=== PATIENT | female | born 1965 | race Caucasian/White ===

== ENCOUNTER → 2019-03-18 | Outpatient (CLI) | payer MEDICARE, MEDICAID ==
[2015-10-27 14:35] VITALS: BP 125/59
[~2019-03-18] MED LIST: [UNRECOGNIZED DRUG - REMARK]
--- NOTE | 2019-03-18 15:51 | KCIC ---
EXAM: Bilateral hips, 2 views. HISTORY: Pain. COMPARISON: None. FINDINGS: 2 views of both hips are obtained. There is no fracture, dislocation or subluxation. The femoral heads are normal in configuration. IMPRESSION: No acute osseous finding. Electronically signed by: Kristie Schwartz MD (03/18/2019 3:48 PM) [facility]
--- NOTE | 2019-03-18 16:32 | KCIC ---
EXAM: Dual energy x-ray absorptiometry (DEXA). HISTORY: Post menopausal screening. TECHNIQUE: Dual energy x-ray absorptiometry of the lumbar spine and the left hip was performed. T-score of average bone mineral density based was calculated based on standard deviations above or below the expected young adult normal value. Diagnostic definitions were established by the [employer] Organization. FINDINGS: The average bone mineral density associated with L1-L4 is 0.709 g/cm^2, corresponding with a T-score of -3.1. The average total bone mineral density associated with the left hip is 0.839 g/cm^2, corresponding with a T-score of -0.8. No comparison examinations are available. Refer to the worksheets for full detail. IMPRESSION: 1. Osteoporosis. Average bone mineral density yields a T-score of -2.5 or less. Fracture risk is high. Electronically signed by: Daquan Box MD (03/18/2019 4:29 PM) [facility]
--- NOTE | 2019-03-18 19:13 | KCIC ---
Bilateral digital screening mammograms with 3-D tomosynthesis: Reason for examination: Routine screening. Comparison is made to previous study dated 06/30/2011. Bilateral mammograms in CC and oblique projections were obtained with 2-D imaging and 3-D tomosynthesis imaging on a Siemens Inspiration unit and reviewed on the workstation. Interpretation was made with the benefit of CAD. The skin and nipples show no abnormalities. No abnormal axillary lymph nodes are seen. The breast parenchyma is extremely dense. (Breast density: Category D.) There appears to be new nodularity in the subareolar 3:00 position of the left breast. This may represent ductal ectasia however papilloma cannot be excluded. Further evaluation with ultrasound is recommended. There are no other new dominant masses, suspicious calcifications or architectural distortion evident. Benign calcifications are present. Impression: New nodularity in the retroareolar 3:00 position of the left breast. Recommend further evaluation with ultrasound. Your patient's mammogram demonstrates that she has dense breast tissue (breast density category C or D), which could hide abnormalities, and if she has other risk factors for breast cancer that have been identified, she might benefit from supplemental screening tests that may be suggested by you as her ordering physician. Dense breast tissue, in and of itself, is a relatively common condition. Therefore, this information is not provided to cause undue concern, but rather to raise your awareness and to promote discussion with your patient regarding the presence of other risk factors, in addition to dense breast tissue. Your patient's mammography results will be sent to her. BI-RAD Category 0: Incomplete. Needs additional imaging evaluation. "Our facility is accredited by the [employer] Mammography Program." This patient's information has been entered into a reminder system for the patient to be notified with the results of her examination and a target date for the next mammogram. Electronically signed by: Jenna Conti MD (03/18/2019 7:11 PM) [id number]
== END | disposition home or self-care (01) ==
LOC: MAMMO 14:20
PROVIDERS: ATTEND Family Medicine
DX: Z12.31 Encounter for screening mammogram for malignant neoplasm of breast (principal); N64.89 Other specified disorders of breast; M81.0 Age-related osteoporosis without current pathological fracture; M25.551 Pain in right hip; M25.552 Pain in left hip; Z78.0 Asymptomatic menopausal state
CPT/HCPCS: 73521; 77063; 77067; 77080

== ENCOUNTER → 2019-03-25 | Outpatient (CLI) | payer MEDICARE, MEDICAID ==
[2015-10-27 14:35] VITALS: BP 125/59
--- NOTE | 2019-03-25 13:46 | KCIC ---
EXAM: Left breast sonogram. HISTORY: 53-year-old female presents for evaluation of nodularity within the left breast demonstrated on a mammogram dated 03/18/2019. TECHNIQUE: Sonographic imaging of the left breast including all 4 quadrants and the retroareolar region was performed. COMPARISON: None. FINDINGS: There is a focally dilated duct within the 3:00 subareolar aspect of the right breast. No intraductal lesion is seen. There is a small adjacent simple cyst at the 2:30 position measuring 10 mm. No solid lesion is seen. IMPRESSION: 1. Small cyst and focally dilated duct at the 2:30 and 3:00 positions of the left breast, corresponding with mammographic nodularity in this location. There is no suspicious sonographic finding. 2. BI-RADS Category 2: Benign finding(s). Annual mammography is recommended. Electronically signed by: Kristie Schwartz MD (03/25/2019 1:43 PM) [id number]
== END | disposition home or self-care (01) ==
LOC: KCIC US 13:18
PROVIDERS: ATTEND Family Medicine
DX: N60.02 Solitary cyst of left breast (principal)
CPT/HCPCS: 76641

== ENCOUNTER → 2019-04-01 | Outpatient (CLI) | payer MEDICARE, MEDICAID ==
[2015-10-27 14:35] VITALS: BP 125/59
[2019-04-01 08:57] LABS: BASO % 1 % (0-3); EOS # 0.2 x10^3/uL (0.0-0.7); EOS % 5 % (0-3); HEMATOCRIT 34.1 % (36.0-47.0); HEMOGLOBIN 11.6 g/dL (12.0-15.5); LYMPH # 0.6 x10^3/uL (1.0-4.8); LYMPH % 13 % (24-48); MEAN CORPUSCULAR HEMOGLOBIN 30 pg (25-35); MEAN CORPUSCULAR HGB CONC 34 g/dL (31-37); MEAN CORPUSCULAR VOLUME 88 fL (79-100); MONO # 0.6 x10^3/uL (0.0-1.1); MONO % 12 % (0-9); NEUT # 3.6 x10^3/uL (1.8-7.7); NEUT % 70 % (31-73); PLATELET COUNT 347 x10^3/uL (140-400); RED BLOOD COUNT 3.88 x10^6/uL (3.50-5.40); RED CELL DISTRIBUTION WIDTH 14.3 % (11.5-14.5); WHITE BLOOD COUNT 5.1 x10^3/uL (4.0-11.0)
[2019-04-01 09:21] LABS: ALBUMIN 3.5 g/dL (3.4-5.0); ALBUMIN/GLOBULIN RATIO 0.9 (1.0-1.7); C-REACTIVE PROTEIN 3.3 mg/L (0-3.3); CALCIUM 8.7 mg/dL (8.5-10.1); CREATININE 0.8 mg/dL (0.6-1.0); TOTAL BILIRUBIN 0.4 mg/dL (0.2-1.0); TOTAL PROTEIN 7.6 g/dL (6.4-8.2)
[2019-04-01 09:29] LABS: CHOLESTEROL/HDL RATIO 3.1
== END | disposition home or self-care (01) ==
LOC: LAB 08:41
PROVIDERS: ATTEND Family Medicine
DX: R53.83 Other fatigue (principal); Z78.0 Asymptomatic menopausal state
CPT/HCPCS: 36415; 80053; 80061; 82306; 84443; 85025; 86140